=== PATIENT | male | born 1955 | race Caucasian/White ===

== ENCOUNTER 2019-09-07 10:38 | Day surgery (SDC) ==
[2019-09-07] MEDS ORDERED: PEPCID ONE (11:13)
[2019-09-07] MEDS ORDERED: LR 1,000 ML ONE ×2 (11:13→18:44)
[2019-09-07] MEDS ORDERED: KEFZOL 1 GM/D5W 2 GM/100 ML IVPB ONE (11:13)
[2019-09-07] MEDS ORDERED: REGLAN ONE (11:13)
[2019-09-07] MEDS ORDERED: DIPRIVAN 1% ONE (12:01)
[2019-09-07] MEDS ORDERED: FENTANYL ONE ×2 (12:02→16:07)
[2019-09-07] MEDS ORDERED: XYLOCAINE-MPF 2% ONE (12:03)
[2019-09-07] MEDS ORDERED: QUELICIN (DOSE) ONE ×2 (13:51→14:55)
[2019-09-07] MEDS ORDERED: SODIUM CHLORIDE 0.9% 10 ML ONE (14:54)
[2019-09-07] MEDS ORDERED: NORCURON ONE (14:54)
[2019-09-07] MEDS ORDERED: OFIRMEV 1000 MG/ISOTONIC SOLN 1,000 MG/100 ML BOTTLE ONE (16:13)
[2019-09-07] MEDS ORDERED: ZOFRAN ONE (16:13)
[2019-09-07] MEDS ORDERED: EPINEPHRINE ONE ×2 (16:18→17:02)
[2019-09-07] MEDS ORDERED: DILAUDID ONE (17:35)
[2019-09-07] MEDS ORDERED: VANCOMYCIN ONE (17:36)
[2019-09-07] MEDS ORDERED: ROBINUL ONE (17:54)
[2019-09-07] MEDS ORDERED: NEOSTIGMINE ONE (17:54)
[2019-09-07] MEDS ORDERED: PERCOCET-5 PO PRN ×2 (19:48)
[2019-09-07] MEDS: LR 1,000 ML IV SCH (20:42)
[2019-09-07] MEDS: PERIDEX MT SCH (20:43)
[2019-09-07] MEDS ORDERED: MILK OF MAGNESIA PO PRN (20:54)
[2019-09-07] MEDS ORDERED: ZOFRAN IV PRN (20:54)
[2019-09-07] MEDS ORDERED: MORPHINE IV PRN (20:54)
[2019-09-07] MEDS: COLACE PO SCH ×2 (22:54→23:59)
[2019-09-08] MEDS ORDERED: VANCOMYCIN 1 GM/NS 1 GM/250 ML IVPB IV ONE (04:00)
[2019-09-08] MEDS: COLACE PO SCH (04:17)
--- NOTE | 2019-09-08 05:16 | OPERATIVE NOTE ---
PROCEDURE DATE: Addendum INDICATIONS FOR PROCEDURE: Mr. Zimmer is a 63-year-old gentleman who sustained a left humeral shaft fracture after a same-level fall about 2 weeks ago. We have attempted non operative treatment for this in both Miles brace as well as the humeral stabilization system. Given his body habitus and the fracture pattern, these types of immobilization were failing to hold reduction. He was doing decent during his 1st week, however, when I saw him after the 2nd week in the clinic he had significant gapping and loss of reduction. Given these findings, the decision was made to proceed to the operating room with open reduction internal fixation of the left humeral shaft fracture. Risks, benefits, and alternative therapies were discussed with the patient regarding surgery. Risks of surgery include but not limited to risks of bleeding, infection, damage to nerves and vessels around the area, continued pain following surgery, malunion, nonunion, and need for revision surgery. Also, risks of anesthesia including blood clot, stroke, heart attack, and even . I discussed in detail with the patient the risk of a radial nerve palsy given its location compared to the fracture. The patient understands all these risks, all questions were answered. Informed Consent was obtained. PROCEDURE IN DETAIL: Mr. Zimmer was identified by wristband, and greeted in the preop holding area on 09/07/2019. His left upper extremity which was the operative site was marked with indelible ink per [id number] protocol. Following this, the patient was transferred back to the operating room for surgery. Upon entering the OR, he was transferred in supine position on the Skytron table. All bony prominences well padded. General endotracheal anesthesia was then induced. At this time, the right upper extremity was then prepped and draped in routine sterile fashion. Formal time-out was performed confirming correct patient, procedure, operative site, operative side, and administration of perioperative antibiotics. Everyone was in agreement. Patient received 2 g Ancef prior to incision. A 10 blade knife was used to make a standard longitudinal incision over the anterior lateral aspect of the arm measuring about 15 cm. Knife was used to dissect through skin. Bovie cautery was then used to dissect through subcutaneous fat down to the level of biceps fascia. The biceps fascia was then incised and biceps muscles were retracted medially. Brachialis was then identified. There was a rent in the brachioradialis likely secondary to the trauma and displacement of his fracture. At this time, the brachialis was then split using a knife in line with it's fibers between the middle 2/3 and the lateral 1/3 junction. A [place] elevator was then used to elevate the brachialis off of the bone for placement of our plate. A Synthes 9-hole narrow 4.5 LCP plate was then contoured using plate Benders on the back table. Once we had adequate exposure of the proximal and distal fragments, a curette was then used to clean out the fracture site. Patient was found to have some early callus formation. Once bone ends were cleaned, lobster claw reduction clamps were placed in the proximal and distal fragments and reduction maneuver was performed. Once we were satisfied with our reduction, [id number] clamp was then placed provisionally holding this. At this time, we proceeded with placement of two 2.7 mm lag screws in a lag bite technique fashion across fracture site. Both screws had excellent purchase, and maintained reduction of the fracture. Fluoroscopy was brought in confirming reduction of the fracture. At this time, a 9 hole Synthes plate that was placed was first contoured on the back table, and then placed in the wound. We were satisfied with position of our plate on both AP and lateral views. We then proceeded with pinning of the plate followed by placement of our screws in a routine fashion. The patient was found to have excellent bite with all screws. All screws were cortical. Once all screws were placed, final AP and lateral images of the humerus were taken confirming anatomic reduction of the fracture, and good placement of the hardware. At this time, the wound was copiously irrigated with normal saline. We then proceeded with closure of the wound using a running #1 Vicryl suture for closure of our brachial radialis as well as biceps fascia. 2-0 Vicryl suture was then used for subcutaneous tissue closure followed by nylons in horizontal mattress fashion for skin closure. The patient was then woken up, transferred to hospital stretcher, and taken to recovery in stable condition. There were no acute complications of the procedure. All sponge and sharp counts were correct at conclusion of procedure.
[2019-09-08 07:14] LABS: HEMATOCRIT 35.2 % (42.0-52.0); HEMOGLOBIN 11.7 g/dL (14.0-18.0)
[2019-09-08 07:38] LABS: AGAP 11; BUN 24 mg/dL (8-22); CALCIUM 9.1 mg/dL (8.8-10.2); CHLORIDE 92 mmol/L (98-107); COSMO 275; ESTIMATED GFR > 60; GLUCOSE 242 mg/dL (70-104); POTASSIUM 4.4 mmol/L (3.5-5.1); SODIUM 131 mmol/L (136-145); TCO2 28 mmol/L (25-35)
[2019-09-08 07:58] VITALS: BP 143/64
[2019-09-08] MEDS: LR 1,000 ML IV SCH (08:29)
[2019-09-08] MEDS: PERIDEX MT SCH (08:39)
[2019-09-08] MEDS ORDERED: FERROUS SULFATE PO SCH (09:00)
--- NOTE | 2019-09-08 10:25 | ORTHOPAEDICS PROGRESS NOTE ---
DATE: 09/08/2019 SUBJECTIVE: No acute events overnight. Patient is tolerating diet. His pain is well controlled on p.o. pain medication. He has not had his drain emptied overnight. He states he is ready to go home. OBJECTIVE: Hematocrit 35, afebrile. Vital signs are stable.Extremities: Examination of left upper extremity shows surgical dressing to be clean, dry, intact. Drain is in place with about 100 mL of output. Motor is intact AIN, PIN, and ulnar nerve distribution. Sensation intact to light touch to median, radial, ulnar, axillary nerves. Radial pulse palpable and equal bilaterally. ASSESSMENT: A 63-year-old male status post open reduction and internal fixation of left humeral shaft fracture. Postop day 1. PLAN: 1. Patient to be nonweightbearing left upper extremity. I instructed him to work on elbow, wrist and hand range of motion exercises. He also do Codman and pendulum exercises for the shoulder. 2. Will discontinue drain today. 3. He can restart his home aspirin 81 mg for DVT prophylaxis. DISPOSITION: Discharge home today. I will see him back in clinic in 2 weeks for wound check and x-rays.
--- NOTE | 2019-09-08 14:21 | DISCHARGE SUMMARY ---
ADMISSION DATE: 09/07/2019 DISCHARGE DATE: 09/08/2019 ADMISSION DIAGNOSIS: Left humeral shaft fracture. DISCHARGE DIAGNOSIS: Left humeral shaft fracture. PROCEDURE: Open reduction internal fixation of left humeral shaft fracture. COMPLICATIONS: None. CONSULTATIONS: None. BRIEF HOSPITAL COURSE: Mr. Zimmer is a 63-year-old gentleman who has been followed for left humeral shaft fracture. He was unable to maintain reduction in alignment with nonoperative treatment, so the decision was made to proceed with open reduction and internal fixation. Risks, benefits and alternative therapies were discussed with patient regarding surgery. All questions were answered. Informed consent was obtained. The patient presented to [facility] on 09/07/2019 and underwent the above procedure. He tolerated surgery well. Following surgery, patient was transferred to the floor for observation. The patient did well overnight without any issues. He has been tolerating a diet. He has been urinating and his pain is well controlled. His vital signs remained stable postoperatively and his hematocrit was appropriate on postop day 1. On postop day 1, patient was tolerating diet. His pain was well controlled on p.o. pain medication, and he was ambulating with no issues. The decision was thus made to discharge the patient home on 09/08/2019. DISPOSITION: Discharge to home. CONDITION: Stable. ACTIVITY: The patient is to be nonweightbearing left upper extremity. Instructed him to work on elbow, wrist and hand range of motion exercises. DISCHARGE MEDICATIONS: 1. Patient to restart home medications. 2. Aspirin 81 mg for DVT prophylaxis. 3. Percocet. 4. Zofran. DISCHARGE INSTRUCTIONS: 1. Patient is to keep his surgical dressing clean, dry, and intact x4 days. Following this, he can remove the dressing and wash the arm with soap and water. Instructed him not to submerge his arm in water or bath. 2. Aspirin 81 mg for DVT prophylaxis. 3. Follow up in clinic with me in 2 weeks for wound check and suture removal. 4. Call in to the office or return to the ER with any acute onset chest pain, shortness of breath, fever greater than 101.5 degrees, or drainage from surgical incision.
--- NOTE | 2019-09-10 05:51 | OPERATIVE NOTE ---
PROCEDURE DATE: 09/07/2019 INCOMPLETE, DICTATION BEGINS HERE. PREOPERATIVE DIAGNOSIS: Left midshaft humerus fracture. POSTOPERATIVE DIAGNOSIS: Left midshaft humerus fracture. PROCEDURE: Open reduction internal fixation of left midshaft humerus fracture. SURGEON: Irving Harrison MD. ASSISTANTS: CARMENCITA Cueto, whose help was needed throughout the case for retraction, position of implants. ANESTHESIA: General endotracheal anesthesia. COMPLICATIONS: None. SPECIMENS: None. DRAINS: One Hemovac drain was placed in subcutaneous tissue prior to closure. IMPLANTS: 1. Synthes 4.5 mm narrow 9-hole LCP plate. 2. The 2.7 mm lag screws x2. INCOMPLETE, DICTATION ENDS HERE.
== END 2019-09-08 13:04 | disposition home or self-care (01) ==
LOC: PAT 10:38 → OPS 10:38 → INTOOBSV 18:56 → 4N 18:56 → OPS 09-08 13:04
PROVIDERS: ATTEND Orthopaedic Surgery Sports Medicine